=== PATIENT | male | born 1995 | race Caucasian/White ===

== ENCOUNTER 2024-01-23 11:57 | Outpatient (CLI) | payer BC, SELFPAY ==
[2024-01-23 14:42] LABS: Free T4 Free Thyroxine 1.69 ng/mL (0.78-2.19)
[2024-01-23 19:07] LABS: Alanine Aminotransferase 30 U/L (6-50); Albumin Level 4.3 g/dL (3.5-5.1); Alkaline Phosphatase 68 U/L (38-126); Anion Gap 8 mmol/L (4-12); Aspartate Amino Transferase 42 U/L (17-59); Bilirubin,Total 0.3 mg/dL (0.2-1.3); Blood Urea Nitrogen 19 mg/dL (9-20); Calcium 9.6 mg/dL (8.4-10.2); Carbon Dioxide 29 mmol/L (22-30); Chloride 105 mmol/L (98-107); Estimated Glomerular Filt Rate > 60; Glucose 84 mg/dL (65-110); Sodium 142 mmol/L (137-145)
[2024-01-23 19:40] LABS: Thyroid Stimulating Hormone < 0.015 uIU/mL (0.465-4.680); Total Triiodothyronine (T3) 2.02 NG/ML (0.97-1.69)
[2024-01-27 12:02] LABS: Thyroid Peroxidase Antibodies 114 IU/mL (<9)
[2024-01-28 19:24] LABS: Thyroid Stimulating Immunoglob 158 % baseline (<140)
[2024-02-05 20:18] LABS: Thyrotropin Receptor Antibody <1.00 IU/L (< OR = 2.00)
== END 2024-01-23 11:58 | disposition home or self-care (01) ==
LOC: ANHWCLAB 11:59
PROVIDERS: Visit Provider Internal Medicine
DX: E05.90 Thyrotoxicosis, unspecified without thyrotoxic crisis or storm (principal)
CPT/HCPCS: 36415; 80053; 83519; 84439; 84443; 84445; 84480; 86376